=== PATIENT | male | born 1950 | race Caucasian/White ===

== ENCOUNTER 2017-08-06 05:25 | Emergency (ER) | payer OTHER, MEDICARE ==
[~2017-08-06] VITALS: Ht 167.6 cm; Wt 68.0 kg
[~2017-08-06 05:25] MED LIST: INSNPH7030 SQ; METO50TA7 PO; MULT PO; NIFE60TA7 PO; ROSU10TA PO; TUM500 PO
[2017-08-06 05:28] VITALS: BP_SYST 130
--- NOTE | 2017-08-06 05:28 | NUR ---
Patient to ER bed 6 to gown for evaluation. Side rails up. Report given to GRACIELA LOU.
--- NOTE | 2017-08-06 05:30 | NUR ---
Patient brought to ED via BLS with c/o right shoulder pain s/p mechanical fall. Patient reports falling asleep in wheel chair. Fell forward landing to right shoulder. No obvious deformity to site. CMS intact distal to injury. Increased pain on palpation. Will continue to monitor.
--- NOTE | 2017-08-06 05:37 | NUR ---
ED MD Oconnell at bedside for medical evaluation.
[2017-08-06] MEDS ORDERED: fentaNYL CITRATE/PF 100 MCG/2 ML AMP IM ONE (05:45)
--- NOTE | 2017-08-06 06:18 | NUR ---
Patient reports pain 3/10 30 minutes after administration of Fentanyl IVP. No adverse reactions noted. Will continue to monitor.
--- NOTE | 2017-08-06 06:21 | NUR ---
arm immobilizer applied to right arm. 2+ pulse noted. Capillary refill <[2 seconds. Patient has ability to move non-splinted digits. Has sensation present to affected site. Skin color within normal limits. Applied for pain management control.
--- NOTE | 2017-08-06 07:05 | NUR ---
Report received from GRACIELA Granda. All care endorsed.
[2017-08-06] MEDS ORDERED: ACETAMINOPHEN 325 MG TABLET PO ONE (07:45)
--- NOTE | 2017-08-06 07:51 | NUR ---
Called patient's son in regards to picking up patient. Son states he is 45 minutes away from ED. Informed patient of son's status. Patient states pain is coming back, notified Dr. Casiano.
--- NOTE | 2017-08-06 08:56 | NUR ---
Re-assessed pain. Pt states pain subsided to 2/10.
[2017-08-06 09:05] VITALS: BP_SYST 129
--- NOTE | 2017-08-06 09:05 | NUR ---
Patient given written and verbal discharge instructions and verbalizes understanding. ER MD discussed with patient the results and treatment provided. Patient in stable condition. ID arm band removed. IV catheter removed intact and dressing applied, no active bleeding. No Rx given. Patient educated on pain management and to follow up with PMD. Pain Scale 2. Opportunity for questions provided and answered. Medication side effect fact sheet provided.
== END 2017-08-06 09:05 | disposition home or self-care (01) ==
LOC: SED 05:25
DX: S46.911A Strain of unspecified muscle, fascia and tendon at shoulder and upper arm level, right arm, initial encounter (principal); J44.9 Chronic obstructive pulmonary disease, unspecified; I10 Essential (primary) hypertension; E11.29 Type 2 diabetes mellitus with other diabetic kidney complication; N28.9 Disorder of kidney and ureter, unspecified; Z88.0 Allergy status to penicillin; Z79.4 Long term (current) use of insulin; W07.XXXA Fall from chair, initial encounter; Y93.89 Activity, other specified; Y92.89 Other specified places as the place of occurrence of the external cause; Y99.8 Other external cause status
CPT/HCPCS: 73000; 73030; 96372; 99284; J3010

== ENCOUNTER 2018-03-22 12:38 | Inpatient (IN) | payer OTHER, MEDICARE, MEDICAID ==
[~2018-03-22] VITALS: Ht 170.2 cm; Wt 73.9 kg
[2018-03-22 12:38] VITALS: BP_SYST 108
[~2018-03-22 12:38] MED LIST changes: +ACET325T53 PO; +ALBU2.5V7 INH; +B CO PO; +CAT.1 PO; +HYDR-1189 PO; +HYDR-4038 PO; -INSNPH7030 SQ; +INSU10VI4 SUBCUT; +METO-290 PO; +METO-442 PO; -METO50TA7 PO; +NEPH PO; -NIFE60TA7 PO; +PHO667 PO; +PROXL60 PO; +SENN-153 PO; +[UNRECOGNIZED DRUG - CODE] PO
[2018-03-22] MEDS ORDERED: NS 250 ML IV ONE (12:45)
[2018-03-22 13:20] LABS: BASOPHILS # (AUTO) 0.1 K/uL (0.0-0.2); BASOPHILS % (AUTO) 0.5 % (0.0-2.0); EOSINOPHILS # (AUTO) 0.7 K/uL (0.0-0.4); EOSINOPHILS % (AUTO) 4.6 % (0.0-4.0); HEMATOCRIT 33.2 % (36-54); HEMOGLOBIN 10.6 g/dL (14.0-18.0); LYMPHOCYTES # (AUTO) 0.8 K/uL (1.0-5.5); LYMPHOCYTES % (AUTO) 5.9 % (20.5-51.5); MEAN CORPUSCULAR HEMOGLOBIN 32 pg (27-31); MEAN CORPUSCULAR HGB CONC 32 % (32-36); MEAN CORPUSCULAR VOLUME 101 fL (79.0-98.0); MONOCYTES # (AUTO) 1.1 K/uL (0.0-1.0); MONOCYTES % (AUTO) 7.9 % (1.7-9.3); NEUTROPHILS # (AUTO) 11.5 K/uL (1.8-7.7); NEUTROPHILS % (AUTO) 81.1 % (40.0-70.0); PLATELET COUNT (AUTO) 337 K/uL (130-430); RED BLOOD CELL COUNT(AUTO) 3.28 MIL/uL (4.2-6.2); RED CELL DISTRIBUTION WIDTH 13.8 % (9.0-15.0); WHITE BLOOD COUNT (AUTO) 14.2 K/uL (4.8-10.8)
[2018-03-22 13:35] LABS: ALBUMIN 2.9 g/dL (3.4-4.8); CALCIUM 9.3 mg/dL (8.4-11.0); CREATININE 6.37 mg/dL (0.55-1.30); PROTHROMBIN TIME 10.2 SECS (9.5-12.5); TOTAL BILIRUBIN 0.4 mg/dL (0.0-1.0)
[2018-03-22 13:38] LABS: POTASSIUM 2.6 mmol/L (3.5-5.1)
[2018-03-22] MEDS ORDERED: POTASSIUM CHLORIDE 20 MEQ TAB.PRT.SR PO ONE (14:30)
[2018-03-22] MEDS ORDERED: LEVOFLOXACIN 500 MG TABLET PO ONE (14:45)
[2018-03-22] MEDS ORDERED: metroNIDAZOLE 500 MG TABLET PO ONE (14:45)
[2018-03-22 15:31] VITALS: BP_SYST 107
[2018-03-22 17:02] VITALS: BP_SYST 146
[2018-03-22] MEDS ORDERED: cloNIDine HCL 0.1 MG TABLET PO PRN (19:15)
[2018-03-22] MEDS ORDERED: SENNOSIDES 8.6 MG TABLET PO SCH (19:15)
[2018-03-22] MEDS ORDERED: ALBUTEROL SULFATE 0.083% 2.5 MG/3 ML VIAL.NEB INH PRN (19:15)
[2018-03-22] MEDS ORDERED: METOCLOPRAMIDE HCL 10 MG TABLET PO PRN (19:15)
[2018-03-22] MEDS ORDERED: NIFEDIPINE 60 MG TABLET.SA (PROCARDIA XL 60 MG) PO SCH (19:15)
[2018-03-22] MEDS ORDERED: HYDROcodone/ACETAMIN 5-325 MG TAB (NORCO/ VICODIN) PO PRN (19:15)
[2018-03-22] MEDS ORDERED: ACETAMINOPHEN 325 MG TABLET PO PRN (19:15)
[2018-03-22 19:44] LABS: CREATININE 6.58 mg/dL (0.55-1.30)
[2018-03-22 19:52] LABS: POTASSIUM 4.4 mmol/L (3.5-5.1)
[2018-03-22 20:00] VITALS: BP_SYST 140
[2018-03-22] MEDS: ATORVASTATIN 10 MG TABLET PO SCH (21:12)
[2018-03-22] MEDS: CALCIUM ACETATE 667 MG CAP PO SCH (21:12)
[2018-03-22] MEDS: NEPHROVITE, (FOLIC ACID/VITAMIN B COMP W-C 1 TAB) PO SCH (21:12)
[2018-03-22] MEDS: INSULIN NPH/REGULAR 70-30, 100 UNITS/ML, 10 ML VIAL SUBCUT SCH (21:19)
[2018-03-23] MEDS: CALCIUM CARBONATE 500 MG/ TAB.CHEW PO SCH ×3 (06:06→16:46)
[2018-03-23 07:36] LABS: BASOPHILS # (AUTO) 0.1 K/uL (0.0-0.2); BASOPHILS % (AUTO) 0.5 % (0.0-2.0); EOSINOPHILS # (AUTO) 0.8 K/uL (0.0-0.4); EOSINOPHILS % (AUTO) 5.3 % (0.0-4.0); HEMATOCRIT 29.8 % (36-54); HEMOGLOBIN 9.8 g/dL (14.0-18.0); LYMPHOCYTES # (AUTO) 0.9 K/uL (1.0-5.5); LYMPHOCYTES % (AUTO) 6.1 % (20.5-51.5); MEAN CORPUSCULAR HEMOGLOBIN 34 pg (27-31); MEAN CORPUSCULAR HGB CONC 33 % (32-36); MEAN CORPUSCULAR VOLUME 104 fL (79.0-98.0); MONOCYTES # (AUTO) 1.2 K/uL (0.0-1.0); MONOCYTES % (AUTO) 8.1 % (1.7-9.3); NEUTROPHILS # (AUTO) 11.2 K/uL (1.8-7.7); PLATELET COUNT (AUTO) 339 K/uL (130-430); RED BLOOD CELL COUNT(AUTO) 2.87 MIL/uL (4.2-6.2); RED CELL DISTRIBUTION WIDTH 13.7 % (9.0-15.0); WHITE BLOOD COUNT (AUTO) 14.2 K/uL (4.8-10.8)
[2018-03-23 07:46] LABS: CALCIUM 9.5 mg/dL (8.4-11.0); CREATININE 7.48 mg/dL (0.55-1.30); POTASSIUM 3.1 mmol/L (3.5-5.1)
[2018-03-23 08:22] VITALS: BP_SYST 105
[2018-03-23] MEDS: CALCIUM ACETATE 667 MG CAP PO SCH ×3 (09:09→22:00)
[2018-03-23] MEDS: MULTIVITAMINS TAB 1 TABLET PO SCH (09:10)
[2018-03-23 09:18] VITALS: BP_SYST 116
[2018-03-23] MEDS: METOPROLOL TARTRATE 50 MG TABLET PO SCH (09:19)
[2018-03-23 11:54] VITALS: BP_SYST 122
[2018-03-23] MEDS: hydrALAZINE HCL 25 MG TABLET PO SCH (11:56)
[2018-03-23 16:38] VITALS: BP_SYST 127
[2018-03-23] MEDS ORDERED: POTASSIUM CHLORIDE 20 MEQ TAB.PRT.SR PO ONE (16:45)
[2018-03-23] MEDS: INSULIN REGULAR, HUMAN 100 UNITS/ML, 10 ML VIAL (novoLIN R) SUBCUT PRN (16:50)
[2018-03-23 20:56] VITALS: BP_SYST 108
[2018-03-23] MEDS: NEPHROVITE, (FOLIC ACID/VITAMIN B COMP W-C 1 TAB) PO SCH (22:01)
[2018-03-23] MEDS: ATORVASTATIN 10 MG TABLET PO SCH (22:01)
[2018-03-23] MEDS: INSULIN NPH/REGULAR 70-30, 100 UNITS/ML, 10 ML VIAL SUBCUT SCH (22:10)
[2018-03-24 00:12] VITALS: BP_SYST 123
[2018-03-24] MEDS: CALCIUM CARBONATE 500 MG/ TAB.CHEW PO SCH ×3 (06:16→16:57)
[2018-03-24 07:49] VITALS: BP_SYST 145
[2018-03-24] MEDS: MULTIVITAMINS TAB 1 TABLET PO SCH (09:00)
[2018-03-24] MEDS: METOPROLOL TARTRATE 50 MG TABLET PO SCH (09:00)
[2018-03-24] MEDS: CALCIUM ACETATE 667 MG CAP PO SCH ×4 (09:00→20:13)
[2018-03-24] MEDS: INSULIN REGULAR, HUMAN 100 UNITS/ML, 10 ML VIAL (novoLIN R) SUBCUT PRN ×3 (11:26→20:22)
[2018-03-24 12:26] VITALS: BP_SYST 102
[2018-03-24 16:00] VITALS: BP_SYST 146
[2018-03-24 19:17] VITALS: BP_SYST 149
[2018-03-24] MEDS: ATORVASTATIN 10 MG TABLET PO SCH (20:13)
[2018-03-24] MEDS: NEPHROVITE, (FOLIC ACID/VITAMIN B COMP W-C 1 TAB) PO SCH (20:13)
[2018-03-24] MEDS: INSULIN NPH/REGULAR 70-30, 100 UNITS/ML, 10 ML VIAL SUBCUT SCH (20:21)
[2018-03-25 01:33] VITALS: BP_SYST 139
[2018-03-25] MEDS: CALCIUM CARBONATE 500 MG/ TAB.CHEW PO SCH ×3 (05:59→17:00)
[2018-03-25] MEDS: MULTIVITAMINS TAB 1 TABLET PO SCH ×2 (09:00→11:29)
[2018-03-25] MEDS: CALCIUM ACETATE 667 MG CAP PO SCH ×3 (09:00→15:00)
[2018-03-25] MEDS: hydrALAZINE HCL 25 MG TABLET PO SCH ×2 (09:00→11:28)
[2018-03-25] MEDS: METOPROLOL TARTRATE 50 MG TABLET PO SCH ×2 (09:00→11:28)
[2018-03-25 12:10] VITALS: BP_SYST 149
[2018-03-25 12:34] LABS: CALCIUM 9.4 mg/dL (8.4-11.0); POTASSIUM 3.2 mmol/L (3.5-5.1)
[2018-03-25 12:36] LABS: BASOPHILS # (AUTO) 0.3 K/uL (0.0-0.2); CREATININE 9.56 mg/dL (0.55-1.30); EOSINOPHILS # (AUTO) 0.9 K/uL (0.0-0.4); EOSINOPHILS % (AUTO) 6.4 % (0.0-4.0); HEMOGLOBIN 9.8 g/dL (14.0-18.0); LYMPHOCYTES % (AUTO) 7.2 % (20.5-51.5); MEAN CORPUSCULAR HEMOGLOBIN 32 pg (27-31); MEAN CORPUSCULAR HGB CONC 32 % (32-36); MEAN CORPUSCULAR VOLUME 102 fL (79.0-98.0); MONOCYTES # (AUTO) 0.7 K/uL (0.0-1.0); MONOCYTES % (AUTO) 4.9 % (1.7-9.3); NEUTROPHILS # (AUTO) 11.2 K/uL (1.8-7.7); NEUTROPHILS % (AUTO) 79.5 % (40.0-70.0); PLATELET COUNT (AUTO) 372 K/uL (130-430); RED BLOOD CELL COUNT(AUTO) 3.03 MIL/uL (4.2-6.2); RED CELL DISTRIBUTION WIDTH 14.2 % (9.0-15.0); WHITE BLOOD COUNT (AUTO) 14.1 K/uL (4.8-10.8)
[2018-03-25 13:52] VITALS: BP_SYST 149
[2018-03-25] MEDS ORDERED: POTASSIUM CHLORIDE 10 MEQ TAB.PRT.SR PO ONE (14:45)
[2018-03-25 17:55] VITALS: BP_SYST 149
== END 2018-03-25 18:57 | DRG 314 ==
LOC: SED 12:38 → STU 14:16
PROVIDERS: ADMIT Family Medicine; ATTEND Family Medicine
PROC: 5A1D70Z Performance of Urinary Filtration, Intermittent, Less than 6 Hours Per Day (ICD-10-PCS; principal; 2018-03-24)
DX: I95.9 Hypotension, unspecified (principal); J69.0 Pneumonitis due to inhalation of food and vomit; G93.41 Metabolic encephalopathy; N18.6 End stage renal disease; E43 Unspecified severe protein-calorie malnutrition; I12.0 Hypertensive chronic kidney disease with stage 5 chronic kidney disease or end stage renal disease; E87.6 Hypokalemia; D64.9 Anemia, unspecified; E11.22 Type 2 diabetes mellitus with diabetic chronic kidney disease; M19.90 Unspecified osteoarthritis, unspecified site; K52.9 Noninfective gastroenteritis and colitis, unspecified; J44.9 Chronic obstructive pulmonary disease, unspecified; Z79.4 Long term (current) use of insulin; Z99.2 Dependence on renal dialysis; Z88.0 Allergy status to penicillin; Z79.899 Other long term (current) drug therapy; Z68.25 Body mass index [BMI] 25.0-25.9, adult
CPT/HCPCS: 36415; 71045; 80048; 80053; 82962; 83605; 84484; 85025; 85610-TC; 85730-TC; 87040-TC; 87081; 90935; 93005; 99285; J1815; J7030; J8597

== ENCOUNTER 2018-06-03 08:26 | Emergency (ER) | payer OTHER, MEDICARE, MEDICAID ==
[~2018-06-03] VITALS: Ht 167.6 cm; Wt 81.6 kg
[2018-06-03 08:30] VITALS: BP_SYST 153
[2018-06-03 09:29] LABS: BASOPHILS # (AUTO) 0.1 K/uL (0.0-0.2); BASOPHILS % (AUTO) 0.6 % (0.0-2.0); EOSINOPHILS # (AUTO) 0.8 K/uL (0.0-0.4); EOSINOPHILS % (AUTO) 7.1 % (0.0-4.0); HEMATOCRIT 37.5 % (36-54); HEMOGLOBIN 11.7 g/dL (14.0-18.0); LYMPHOCYTES # (AUTO) 1.1 K/uL (1.0-5.5); LYMPHOCYTES % (AUTO) 9.6 % (20.5-51.5); MEAN CORPUSCULAR HEMOGLOBIN 32 pg (27-31); MEAN CORPUSCULAR HGB CONC 31 % (32-36); MEAN CORPUSCULAR VOLUME 104 fL (79.0-98.0); MONOCYTES # (AUTO) 1.3 K/uL (0.0-1.0); MONOCYTES % (AUTO) 11.2 % (1.7-9.3); NEUTROPHILS % (AUTO) 71.5 % (40.0-70.0); PLATELET COUNT (AUTO) 302 K/uL (130-430); RED BLOOD CELL COUNT(AUTO) 3.62 MIL/uL (4.2-6.2); RED CELL DISTRIBUTION WIDTH 15.2 % (9.0-15.0); WHITE BLOOD COUNT (AUTO) 11.3 K/uL (4.8-10.8)
[2018-06-03] MEDS ORDERED: NS 500 ML IV ONE (10:00)
[2018-06-03 10:12] LABS: CALCIUM 8.9 mg/dL (8.4-11.0); CREATININE 7.05 mg/dL (0.55-1.30)
[2018-06-03 10:18] LABS: ALBUMIN 3.3 g/dL (3.4-4.8); TOTAL BILIRUBIN 0.4 mg/dL (0.0-1.0)
[2018-06-03 10:23] LABS: POTASSIUM 2.4 mmol/L (3.5-5.1)
[2018-06-03] MEDS ORDERED: LORA-259 PO (10:38)
[2018-06-03] MEDS ORDERED: PROXL60 PO (10:38)
[2018-06-03] MEDS ORDERED: HYDR-4038 PO (10:38)
[2018-06-03] MEDS ORDERED: SSREG SUBCUT (10:38)
[2018-06-03] MEDS ORDERED: FLEETMO RC (10:38)
[2018-06-03] MEDS ORDERED: BISA5TAB10 RC (10:38)
[2018-06-03] MEDS ORDERED: ACET-2165 RC (10:38)
[2018-06-03] MEDS ORDERED: MOM PO (10:38)
[2018-06-03] MEDS ORDERED: DOCU-144 PO (10:38)
[2018-06-03] MEDS ORDERED: POTASSIUM CHLORIDE 40 MEQ in NS 250 ML IV ONE (11:00)
[2018-06-03] MEDS ORDERED: POTASSIUM CHLORIDE 20 MEQ TAB.PRT.SR PO ONE (11:00)
[2018-06-03 13:05] VITALS: BP_SYST 166
== END 2018-06-03 11:41 | disposition home or self-care (01) ==
LOC: SED 08:26
DX: D64.9 Anemia, unspecified (principal); E87.6 Hypokalemia; E11.29 Type 2 diabetes mellitus with other diabetic kidney complication; N28.9 Disorder of kidney and ureter, unspecified; I10 Essential (primary) hypertension; M19.90 Unspecified osteoarthritis, unspecified site; Z99.2 Dependence on renal dialysis; Z88.0 Allergy status to penicillin; Z79.899 Other long term (current) drug therapy
CPT/HCPCS: 36415; 71045; 80053; 83605; 84484; 85025; 87040; 99284; J7040; J3480; J7050